=== PATIENT | male | born 1950 | race Hispanic/Latino ===

== ENCOUNTER → 2017-09-11 | Outpatient (CLI) | payer MEDICARE ==
--- NOTE | 2017-09-11 11:41 | Diagnostic Imaging Report ---
PROCEDURE:TESTICULAR ULTRASOUND COMPARISON:None. INDICATIONS:spermatocele of epi TECHNIQUE:The scrotum was evaluated with serna scale and color duplex Doppler sonography. FINDINGS: TESTES: Right testicle measures 4.4 x 2.2 x 2.6 cm. Left testicle measures 4.7 x 2.1 x 2.9 cm. Both testicles are homogeneous in echotexture without masses. Arterial and venous waveforms are present. Increased color Doppler flow of the pampiniform veins on the left with Valsalva. Small right hydrocele. No left hydrocele. EPIDIDYMIS: No increased vascularity. Right epididymal head measures 1.6 x 0.9 x 1.7 cm. Left epididymal head measures 1 x 0.6 x 1.1 cm. Right epididymal head 0.2 x 0.2 x 0.3 cm cyst or spermatocele. Left epididymal head 0.4 x 0.3 x 2.2 cm cyst or spermatocele. CONCLUSION: 1. Tiny bilateral epididymal head cysts or spermatoceles. 2. Small left varicocele. Dictated by: Jerry Landin M.D. on 09/11/2017 at 11:41 Electronically approved by: Jerry Landin M.D. on 09/11/2017 at 11:41
--- NOTE | 2017-09-11 11:41 | Diagnostic Imaging Report ---
PROCEDURE:TESTICULAR DOPPLER ULTRASOUND COMPARISON:None. INDICATIONS:spermatocele of epi TECHNIQUE:The scrotum was evaluated with serna scale and color duplex Doppler sonography. FINDINGS: Please see same day testicular ultrasound for full report. CONCLUSION: Please see same day testicular ultrasound for full report. Dictated by: Jerry Landin M.D. on 09/11/2017 at 11:42 Electronically approved by: Jerry Landin M.D. on 09/11/2017 at 11:42
== END ==
LOC: US 08:57
PROVIDERS: ATTEND Urology
DX: N43.40 Spermatocele of epididymis, unspecified (principal)
CPT/HCPCS: 76870; 93976

== ENCOUNTER → 2024-12-14 | Day surgery (SDC) | payer MEDICARE ==
[~2024-12-14] MED LIST: ACETAMINOPHEN 1000 MG/100 ML IV PRN; ASPIRIN 325 MG TAB PO SCH; BUPIVACAINE 0.5%/EPI 30 ML SDV INJ ONE; CELECOXIB 100 MG CAP PO SCH; DEXAMETHASONE SOD PHOS INJ 4 MG/ML SDV ONE; DIPHENHYDRAMINE HCL INJ 50 MG/ML VIAL IV PRN; DOCUSATE SODIUM 100 MG CAP PO PRN; FENTANYL CITRATE/PF 100MCG/2 ML INJ ONE; FINASTERIDE5 MG PO; FLOMAX0.4 MG PO; HYDROCODONE/APAP 5MG-325MG TAB PO PRN; HYDROCODONE/APAP 7.5MG-325MG 1 EA TAB PO PRN; LIDOCAINE HCL 2% LOCAL INJ 5 ML SDV VIAL INJ ONE; MIDAZOLAM HCL 2 MG/2 ML VIAL ONE; NAPROXEN250 MG PO; ONDANSETRON HCL INJ 2MG/ML 2ML 2 MG/ML VIAL IV PRN; ONDANSETRON HCL INJ 2MG/ML 2ML 2 MG/ML VIAL ONE; PROPOFOL IV EMULSION 10 MG/ML 20 ML VIAL ONE; ROPIVACAINE 246.25 MG, EPINEPHRINE HCL 1:1000 1ML 0.5 MG, CLONIDINE HCL 0.08 MG, KETORO... INJ ONE; ROPIVACAINE/EPI/CLONIDINE/KET 50 ML SYRINGE INJ ONE; SEVOFLURANE INHAL SOLN 250 ML PEN BTL ONE; SODIUM CHLORIDE 0.9% 1000ML 1,000 ML IV SCH; SODIUM CHLORIDE 0.9% 200 ML ONE
[2024-12-14] MEDS: CEFAZOLIN SODIUM 2 GM ONE (06:06)
[2024-12-14] MEDS: LACTATED RINGER'S 1,000 ML ONE (06:06)
[2024-12-14] MEDS: GABAPENTIN 300 MG CAP ONE (06:07)
[2024-12-14] MEDS: CELECOXIB 200 MG CAP ONE (06:07)
[2024-12-14] MEDS: DEXAMETHASONE 10MG/ML PF INJ ONE (06:07)
[2024-12-14 08:05] VITALS: TEMP 97.7
[2024-12-14 12:00] VITALS: BP 134/80; PULSE 76; RESP 16; O2SAT 96
== END | disposition home health service (06) ==
LOC: OR 05:32
PROVIDERS: ATTEND Specialist
DX: M17.11 Unilateral primary osteoarthritis, right knee (principal); N40.0 Benign prostatic hyperplasia without lower urinary tract symptoms; Z01.812 Encounter for preprocedural laboratory examination; Z79.1 Long term (current) use of non-steroidal anti-inflammatories (NSAID); Z79.899 Other long term (current) drug therapy
CPT/HCPCS: 27447; 73560; 86850; 86900; 97110; 97116; 97161; 97530; C1713; C1776 ×3; J1100; J2003; J2250; J2405; J2704; J3010; J7050; J7121; J0169; J1885; J2795